=== PATIENT | male | born 1975 ===

== ENCOUNTER 2016-10-20 18:17 | Emergency (ER) | payer SELFPAY ==
[~2016-10-20] VITALS: Ht 170.2 cm; Wt 60.3 kg
[2016-10-20 19:02] LABS: HEMATOCRIT 45.7 % (38.0-50.0); MCH 30.6 PG (29.0-34.0); MCHC 33.9 G/DL (30.0-36.0); MCV 90.3 FL (86-99); MEAN PLAT.VOLUME 9.1 uM^3 (9.0-12.4); PLATELET COUNT 337 K/uL (156-360); RBC DIS.WIDTH-CV 13.7 % (11.8-14.6); RED BLOOD COUNT 5.06 M/uL (4.00-5.50); WHITE BLOOD COUNT 6.4 K/uL (4.1-10.2)
[2016-10-20 19:09] LABS: CHLORIDE 108 mEq/L (99-109); POTASSIUM 4.1 mEq/L (3.7-5.4)
[2016-10-20 19:10] LABS: SODIUM 147 mEq/L (136-147)
[2016-10-20 19:11] LABS: GLUCOSE 91 mg/dL (70-99)
[2016-10-20 19:13] LABS: ANION GAP 17 MEQ/L (2-14)
[2016-10-20 19:14] LABS: SERUM ETHYL ALCOHOL 425 mg/dL
[2016-10-20 19:16] LABS: GFR ESTIMATE (CALCULATED) > 59 mL/min/; UREA NITROGEN (BUN) 12 mg/dL (9-23)
[2016-10-20 19:27] VITALS: BP 128/82
== END 2016-10-20 19:28 | disposition left against medical advice (07) ==
LOC: EME 18:17
PROVIDERS: Emergency Medicine
DX: F10.129 Alcohol abuse with intoxication, unspecified (principal); F17.200 Nicotine dependence, unspecified, uncomplicated; Z53.20 Procedure and treatment not carried out because of patient's decision for unspecified reasons
CPT/HCPCS: 80048; 81003; 85027; 99281; 99283; G0480